=== PATIENT | female | born 1975 | race Caucasian/White ===

== ENCOUNTER 2016-11-12 14:54 | Emergency (ER) | payer SELFPAY ==
[~2016-11-12] VITALS: Ht 154.9 cm; Wt 72.6 kg
[~2016-11-12 14:54] MED LIST: ATARAX PO; BENADRYL PO; DOXYCYCLINE HY100 M1 PO; EPIPEN0.3 MG/0.1 IM; FLAGYL PO; KEFLEX250 M1 PO; NAPROXEN PO; PEPCID AC20 M2 PO; PREDNISONE1 MG PO; PREDNISONE10 MG PO
== END 2016-11-12 16:54 | disposition home or self-care (01) ==
LOC: CFTX 14:54 → CED 14:54 → CFTX 16:43
DX: S91.311A Laceration without foreign body, right foot, initial encounter (principal); F17.210 Nicotine dependence, cigarettes, uncomplicated; W16.92XA Jumping or diving into unspecified water causing other injury, initial encounter; Y92.9 Unspecified place or not applicable; Z23 Encounter for immunization
CPT/HCPCS: 90471; 90715; 99283